=== PATIENT | female | born 1940 | race Caucasian/White ===

== ENCOUNTER 2019-05-21 00:31 | Observation (INO) | payer MEDICARE, BC ==
--- NOTE | 2019-05-21 00:39 | EDM.PDOC ---
ED HPI GENERAL MEDICAL PROBLEM - General Stated Complaint: AMBULANCE Time Seen by Provider: 05/21/19 00:34 Source of Information: Reports: Patient, EMS, Family History Limitations: Reports: No Limitations - History of Present Illness INITIAL COMMENTS - FREE TEXT/NARRATIVE: pt states started vertigo wile getting into bed. spouse states pt getting some dementia and sometimes forgets her Rx. EMS arrived @ scene of pt in bed c/o vertigo. - Related Data Allergies Allergy/AdvReac Type Severity Reaction Status Date / Time atorvastatin [From Lipitor] Allergy Cannot Verified 05/21/19 01:12 Remember diazepam [From Valium] Allergy Cannot Verified 05/21/19 01:12 Remember ibuprofen Allergy Cannot Verified 05/21/19 01:12 Remember latex Allergy Cannot Verified 05/21/19 01:12 Remember meperidine [From Demerol] Allergy Cannot Verified 05/21/19 01:12 Remember propoxyphene [From Darvon] Allergy Cannot Verified 05/21/19 01:12 Remember shrimp Allergy Cannot Verified 05/21/19 01:12 Remember Sulfa (Sulfonamide Allergy Cannot Verified 05/21/19 01:12 Antibiotics) Remember tetracycline Allergy Cannot Verified 05/21/19 01:12 Remember Home Meds: Home Meds Aspirin 81 mg PO DAILY 05/21/19 [History] DULoxetine HCl [Duloxetine HCl] 60 mg PO DAILY 05/21/19 [History] Donepezil HCl [Aricept] 10 mg PO DAILY 05/21/19 [History] Erythromycin Base [Erythromycin 0.5% Ophth Oint] 1 drop TOP DAILY 05/21/19 [ History] Hydrocodone/Acetaminophen [[place] 5-325 Tablet] 1 tab PO ASDIRECTED PRN 05/21/19 [History] Loteprednol Etabonate 1 drop TOP BID 05/21/19 [History] Memantine HCl [Namenda] 10 mg PO BID 05/21/19 [History] Metoprolol Tartrate 100 mg PO BID 05/21/19 [History] Simvastatin 40 mg PO DAILY 05/21/19 [History] fentaNYL [Duragesic] 1 patch TOP Q72H PRN 05/21/19 [History] valACYclovir HCl [valACYclovir] 1 gm PO BID 05/21/19 [History] ED ROS GENERAL - Review of Systems Review Of Systems: Comprehensive ROS is negative, except as noted in HPI. ED EXAM, DIZZINESS - Physical Exam Exam: See Below Exam Limited By: No Limitations General Appearance: Alert, WD/WN, Mild Distress, Other (discomfort) Ears: Hearing Grossly Normal Throat/Mouth: Normal Voice, No Airway Compromise Head Exam: Atraumatic Neck: Non-Tender, Full Range of Motion Respiratory/Chest: No Respiratory Distress Cardiovascular: Regular Rate, Rhythm GI/Abdominal: Soft, Non-Tender Neurological: Alert, Oriented x 3 Psychiatric: Flat Affect Skin Exam: Warm, Dry, Normal Color Course - Vital Signs Last Recorded V/S: Last Vital Signs Temp 35.8 C 05/21/19 00:34 Pulse 65 05/21/19 00:34 Resp 15 05/21/19 00:34 BP 213/58 H 05/21/19 02:02 Pulse Ox 92 L 05/21/19 00:34 - Orders/Labs/Meds Orders: Active Orders 24 hr Category Date Time Status EKG 12 Lead [EKG Documentation Completion] [RC] STAT Care 05/21/19 00:32 Active Labs: Laboratory Tests 05/21/19 05/21/19 05/21/19 Range/Units 00:34 00:35 00:35 WBC 7.7 (5.0-10.0) 10^3/uL RBC 4.10 L (4.2-5.4) 10^6/uL Hgb 13.1 (12.0-16.0) g/dL Hct 40.4 (37.0-47.0) % MCV 98.5 (80-100) fL MCH 32.0 (27.0-34.0) pg MCHC 32.4 L (33.0-35.0) g/dL Plt Count 220 (150-450) 10^3/uL Neut % (Auto) 34.4 L (42.2-75.2) % Lymph % (Auto) 47.9 (20.5-50.1) % [place] % (Auto) 11.7 H (2-8) % Eos % (Auto) 5.5 H (1.0-3.0) % Baso % (Auto) 0.5 (0.0-1.0) % Sodium 139 (135-145) mmol/L Potassium 3.8 (3.6-5.0) mmol/L Chloride 104 (101-111) mmol/L Carbon Dioxide 26.0 (21.0-31.0) mmol/L Anion Gap 12.8 BUN 14 (7-18) mg/dL Creatinine 0.8 (0.6-1.3) mg/dL Est Cr Clr Drug Dosing 55.45 mL/min Estimated GFR (MDRD) > 60 BUN/Creatinine Ratio 17.50 Glucose 133 H (74-105) mg/dL POC Glucose 134 H (83-110) mg/dl Lactic Acid (0.5-2.2) mmol/L Calcium 8.8 (8.4-10.2) mg/dl Total Bilirubin 0.5 (0.2-1.0) mg/dL AST 17 (10-42) IU/L ALT 13 (10-60) IU/L Alkaline Phosphatase 66 (42-121) IU/L Troponin I < 0.02 (0.00-0.02) ng/ml Total Protein 6.9 (6.7-8.2) g/dl Albumin 4.2 (3.2-5.5) g/dl Globulin 2.7 Albumin/Globulin Ratio 1.56 05/21/19 Range/Units 00:35 WBC (5.0-10.0) 10^3/uL RBC (4.2-5.4) 10^6/uL Hgb (12.0-16.0) g/dL Hct (37.0-47.0) % MCV (80-100) fL MCH (27.0-34.0) pg MCHC (33.0-35.0) g/dL Plt Count (150-450) 10^3/uL Neut % (Auto) (42.2-75.2) % Lymph % (Auto) (20.5-50.1) % [place] % (Auto) (2-8) % Eos % (Auto) (1.0-3.0) % Baso % (Auto) (0.0-1.0) % Sodium (135-145) mmol/L Potassium (3.6-5.0) mmol/L Chloride (101-111) mmol/L Carbon Dioxide (21.0-31.0) mmol/L Anion Gap BUN (7-18) mg/dL Creatinine (0.6-1.3) mg/dL Est Cr Clr Drug Dosing mL/min Estimated GFR (MDRD) BUN/Creatinine Ratio Glucose (74-105) mg/dL POC Glucose (83-110) mg/dl Lactic Acid 1.1 (0.5-2.2) mmol/L Calcium (8.4-10.2) mg/dl Total Bilirubin (0.2-1.0) mg/dL AST (10-42) IU/L ALT (10-60) IU/L Alkaline Phosphatase (42-121) IU/L Troponin I (0.00-0.02) ng/ml Total Protein (6.7-8.2) g/dl Albumin (3.2-5.5) g/dl Globulin Albumin/Globulin Ratio Meds: Medications Discontinued Medications Generic Name Dose Route Start Last Admin Trade Name Freq PRN Reason Stop Dose Admin Clonidine HCl 0.1 mg 05/21/19 00:50 05/21/19 01:11 Catapres PO 05/21/19 00:51 0.1 mg ONETIME ONE Administration Clonidine HCl 0.1 mg 05/21/19 01:57 05/21/19 02:02 Catapres PO 05/21/19 01:58 0.1 mg ONETIME ONE Administration Meclizine HCl 12.5 mg 05/21/19 00:48 05/21/19 01:11 Antivert PO 05/21/19 00:49 12.5 mg ONETIME ONE Administration Ondansetron HCl 4 mg 05/21/19 00:48 05/21/19 01:11 Zofran IV 05/21/19 00:49 4 mg ONETIME ONE Administration - Re-Assessments/Exams Free Text/Narrative Re-Assessment/Exam: 05/21/19 02:[address] Zuly engel; uncontrolled HTN, who kindly admitted pt to observation. Departure - Departure Time of Disposition: 02:38 Disposition: Refer to Observation Condition: Good Clinical Impression: Hypertension Qualifiers: Hypertension type: unspecified Qualified Code(s): I10 - Essential (primary) hypertension - Discharge Information Forms: ED Department Discharge Sepsis Event Note - Focused Exam Vital Signs: Vital Signs Temp Pulse Resp BP BP Pulse Ox 05/21/19 02:02 213/58 H 05/21/19 01:11 243/101 H 05/21/19 00:34 35.8 C 65 15 196/68 H 92 L Date Exam was Performed: 05/21/19 Time Exam was Performed: 02:37 - My Orders Last 24 Hours: My Active Orders 05/21/19 00:32 EKG 12 Lead [EKG Documentation Completion] [RC] STAT - Assessment/Plan Last 24 Hours: My Active Orders 05/21/19 00:32 EKG 12 Lead [EKG Documentation Completion] [RC] STAT
[2019-05-21] MEDS ORDERED: Meclizine 12.5 MG Tab PO ONE (00:48)
[2019-05-21] MEDS ORDERED: Ondansetron 4 MG/2 ML SDV IV ONE (00:48)
[2019-05-21] MEDS ORDERED: cloNIDine 0.1 MG Tab PO ONE ×2 (00:50→01:57)
[2019-05-21 00:59] LABS: ANION GAP 12.8; CHLORIDE,CL 104 mmol/L (101-111); SODIUM,NA 139 mmol/L (135-145)
[2019-05-21] MEDS ORDERED: ALPRAZolam 0.5 MG Tab PO ONE (03:38)
[2019-05-21] MEDS ORDERED: Ondansetron 4 MG Tab.DIS PO PRN (04:30)
[2019-05-21] MEDS ORDERED: Magnesium Hydroxide 400 MG/5 ML Susp 30 ML Cup PO PRN (04:30)
[2019-05-21] MEDS ORDERED: Docusate Sodium 100 MG Cap PO PRN (04:30)
[2019-05-21] MEDS ORDERED: Acetaminophen 325 MG Tab PO PRN (04:30)
[2019-05-21] MEDS ORDERED: Acetaminophen/HYDROcodone 325-5 MG Tab PO PRN ×2 (04:36→05:41)
[2019-05-21] MEDS ORDERED: cloNIDine 0.1 MG Tab PO PRN (04:45)
[2019-05-21] MEDS ORDERED: hydrALAZINE 20 MG/ML SDV IVPUSH PRN (04:46)
[2019-05-21] MEDS ORDERED: ALPRAZolam 0.5 MG Tab PO PRN (04:48)
[2019-05-21] MEDS ORDERED: Metoprolol Tartrate 50 MG Tab PO SCH (09:00)
[2019-05-21] MEDS ORDERED: Memantine 10 MG Tab PO SCH (09:00)
[2019-05-21] MEDS ORDERED: DULoxetine 30 MG Cap PO SCH (09:00)
--- NOTE | 2019-05-21 09:02 | HP ---
CHIEF COMPLAINT: Nausea and dizziness. HISTORY OF PRESENTING ILLNESS: Ms. Elen Montez is a 78-year-old female with medical history significant for hypertension, hyperlipidemia, type 2 diabetes mellitus, obesity, history of dementia, anxiety, depression, history of TIA in the past, presented to the ER with complaints of having nausea and dizziness and noted to have hypertensive urgency with elevated blood pressure. On initial presentation, the patient had a blood pressure of 243/101. The patient was given some clonidine in the ER and continued to have elevated blood pressure, up to 201/70, requiring admission to the hospital. At this time, the patient denies any complaints of chest pain. No shortness of breath. No abdominal pain. The patient denies any headache. No changes in vision. No complaints of weakness or tingling to the extremities. She denies any history of similar complaints in the past. She usually checks her blood pressure at home and usually her blood pressure is in the range of 120 to 130 systolic. She has been compliant with her medications. She has been taking her medications every day. She claims that whenever she gets upset, she tends to have higher blood pressure, and she was upset for some reason. She does not remember quite well. The patient denied any history of chest pains on exertion. No history of dyspnea on exertion. No history of orthopnea or paroxysmal nocturnal dyspnea. The patient denied any history of hematemesis, hematochezia, or melenic stools. Normal bowel and bladder habits otherwise. REVIEW OF SYSTEMS: A complete review of system including skin, ear, nose, and throat, cardiovascular system, respiratory system, gastrointestinal system, genitourinary system, hematology, oncology, neurology, allergy, immunology, constitutional were all evaluated and were negative except for the above-said notes. PAST MEDICAL HISTORY: Significant for hypertension, hyperlipidemia, type 2 diabetes mellitus, obesity, history of anxiety and depression, Sjogren syndrome, history of TIAs in the past, degenerative disk disease, and alzheimer disease. PAST SURGICAL HISTORY: Significant for tonsillectomy, shoulder rotator cuff repair, septoplasty, knee arthroscopy, cataract extraction with implant, history of breast biopsy, and back surgery. FAMILY HISTORY: Significant for heart disease and thyroid disease in her mother, heart disease in her father. Parkinson's, breast cancer, and thyroid disease in her sister. ALLERGIES: The patient noted to have allergies to Lipitor, diazepam, ibuprofen, latex, meperidine, propoxyphene, shrimp, sulfa, and tetracycline. HOME MEDICATIONS: Include Tylenol 650 every 4 hours as needed, aspirin 81 mg daily, docusate sodium 100 mg twice a day as needed, Cymbalta 60 mg daily, Aricept 10 mg at bedtime, fentanyl patch q.72 hours, simvastatin 40 mg at bedtime, erythromycin base ophthalmic at bedtime, [place] 5/325 mg as needed for pain, Namenda 10 mg twice a day, metoprolol 100 mg twice a day, valacyclovir 1 g oral twice a day. PHYSICAL EXAMINATION: Vital Signs: Temperature of 97.8, pulse of 64, blood pressure of 201/70, respiratory rate of 20, saturating at 97%. General Appearance: The patient is well oriented to time, place, and person. Follows commands spontaneously. Cardiovascular System: S1 and S2 heard with normal intensity. No gallops. Respiratory System: Clear to auscultation bilaterally. No wheeze. No crepitations. Abdomen: Soft. Bowel sounds positive. Nontender. No rigidity. Extremities: No edema in bilateral lower extremities. Neurologic: No gross focal neurological deficits. LABORATORY DATA: 1. WBC 7.7, hemoglobin 13.1, hematocrit 40.4, platelet count 220. 2. Sodium 139, potassium 3.8, chloride 104, bicarb 26, BUN 14, creatinine 0.8, glucose 133. AST 17, ALT 13. Troponin less than 0.02. ASSESSMENT: 1. Hypertensive urgency. 2. History of anxiety and depression. 3. Type 2 diabetes mellitus. 4. Hyperlipidemia. 5. Sjogren syndrome. 6. History of transient ischemic attacks in the past. 7. Obesity. 8. Alzheimer's dementia. PLAN: 1. Hypertensive urgency. The patient noted to have elevated blood pressure. Exact etiology not clear. The patient claims that she has been compliant with her medications. CT scan of the head was within normal limits. A 12- lead EKG does not show any acute ST elevation or ST depression. Normal sinus rhythm on the 12-lead EKG. The patient will be admitted to the hospital. We will have her on telemetry unit. We will start her back on her home regimen. We will use clonidine as needed. Use IV hydralazine as needed for systolic blood pressure greater than 180, and we will further titrate the medication to optimize the blood pressure if needed. Closely follow. The patient would benefit from getting an echocardiogram as an outpatient as we do not have the echocardiogram available at this time. 2. Type 2 diabetes mellitus. The patient is not on any active medications for diabetes. Her blood sugar was 133. We will check her fingersticks 4 times a day. Use correction dose insulin as needed. 3. DVT prophylaxis. We will have her on Lovenox for DVT prophylaxis. 4. Alzheimer disease. Continue with Namenda. 5. History of anxiety and depression. She has been on Cymbalta. We will continue the same. Use Xanax as needed for anxiety while in the hospital. 6. Chronic opioid use and continued use. The patient has chronic pain syndrome and has been on fentanyl patch and [place] as needed. 7. Advanced care plan. The patient wants to be full code at this time. Discussed with Dr. Sanchez, ER staff, regarding the plan of care. Discussed with the patient regarding the plan of care. Reviewed the labs and medications. Reviewed the old charts. [facility] /[id number]
[2019-05-21] MEDS: Aspirin 81 MG Tab.Chew PO SCH (09:08)
[2019-05-21] MEDS: Lisinopril 5 MG Tab PO SCH (09:08)
[2019-05-21] MEDS: CHECK FENTANYL 12 MCG SCH ×2 (09:09→21:15)
[2019-05-21] MEDS ORDERED: Donepezil 10 MG Tab **OWN MED PO SCH ×2 (21:00)
[2019-05-21] MEDS ORDERED: Memantine 10 MG Tab **OWN MED PO SCH (21:00)
[2019-05-21] MEDS ORDERED: Simvastatin 40 MG Tab **OWN MED PO SCH ×2 (21:00)
[2019-05-21] MEDS ORDERED: Erythromycin Base 0.5% Ophth Oint 3.5 GM Tube EYERT SCH ×2 (21:00)
[2019-05-21] MEDS: Memantine 10 MG Tab **OWN MED PO SCH (21:14)
[2019-05-21] MEDS: METOPROLOL TARTRATE 100 MG PO SCH (21:15)
[2019-05-22 06:42] LABS: ANION GAP 11.2; CHLORIDE,CL 106 mmol/L (101-111); SODIUM,NA 138 mmol/L (135-145)
[2019-05-22] MEDS ORDERED: DULOXETINE 60 MG PO SCH (09:00)
[2019-05-22] MEDS ORDERED: Enoxaparin 40 MG/0.4 ML Syringe SUBCUT SCH (09:00)
[2019-05-22] MEDS: Lisinopril 5 MG Tab PO SCH (09:31)
[2019-05-22] MEDS: METOPROLOL TARTRATE 100 MG PO SCH (09:32)
[2019-05-22] MEDS: Memantine 10 MG Tab **OWN MED PO SCH (09:32)
[2019-05-22] MEDS: Aspirin 81 MG Tab.Chew PO SCH (09:34)
[2019-05-22] MEDS: CHECK FENTANYL 12 MCG SCH (09:40)
--- NOTE | 2019-05-22 14:15 | DISCH ---
ADMITTING DIAGNOSIS: Hypertensive urgency. DISCHARGE DIAGNOSES: 1. Hypertensive urgency, improved after adding lisinopril 5 mg daily. 2. History of anxiety and depression. 3. Type 2 diabetes mellitus. 4. Alzheimer dementia. HISTORY OF PRESENTING ILLNESS: Ms. Elen Montez is a 78-year-old female with a medical history significant for hypertension, hyperlipidemia, type 2 diabetes mellitus, obesity, history of dementia, anxiety, and depression; presented to the ER with complaints of having nausea and dizziness and noted to have hypertensive urgency where she was noted to have blood pressure of 243/101. The patient was admitted to the hospital as multiple doses of clonidine did not improve her blood pressure while in the ER. After getting admitted to the hospital, she was closely monitored on the telemetry unit. We did serial cardiac enzymes, which remained negative. She denies any ongoing chest pains or shortness of breath. We added lisinopril 5 mg daily, after which her blood pressures improved. Her blood pressure came down to 139/69 at the time of discharge. The patient also claims that her fentanyl patch was recently started, unsure this is resulting in her dizziness symptoms too. The patient was explained about side effect profile of opiate pain medications, and I encouraged the patient to hold the fentanyl patch if she has more nausea, vomiting, or dizziness spells. The patient had a CT scan of the head done at the time of admission, which was within normal limits. The patient and family members were explained about changes in her medication, about the addition of lisinopril for better control of the blood pressure. They are advised to follow with her primary care physician in next 1 week of time. She is discharged home in stable condition. DISCHARGE MEDICATIONS: Include aspirin 81 mg daily, carboxymethylcellulose 1 drop to both eyes as needed for dry eyes, duloxetine 60 mg daily, Aricept 10 mg at bedtime, erythromycin base topical at bedtime, Ganciclovir Eye left twice daily, [place] 5/325 mg every 4 hours as needed for pain, lisinopril 5 mg daily, loteprednol 1 drop topical twice daily, Namenda 10 mg twice a day, metoprolol 100 mg twice a day, simvastatin 40 mg at bedtime, fentanyl patch 12 mcg every 72 hours, and valacyclovir 1 g oral twice daily. PHYSICAL EXAMINATION: On the day of discharge: Vital Signs: Temperature of 98.3, pulse of 60, blood pressure of 139/69, respiratory rate of 18, and saturating at 97%. General Appearance: The patient is well oriented to time, place, and person. Follows commands spontaneously. Cardiovascular System: S1, S2 heard with normal intensity. No gallops. Respiratory System: Clear to auscultation bilaterally. No wheeze. No crepitations. Abdomen: Soft. Bowel sounds positive. Nontender. No rigidity. Extremities: No edema of bilateral lower extremities. NEUROLOGIC: No gross focal neurological deficit. CONDITION ON ADMISSION: Poor. CONDITION ON DISCHARGE: Stable. DISPOSITION: Discharged to home. ACTIVITY: As tolerated. DIET: Cardiac healthy diet. FOLLOWUP: Follow with primary care physician within 1 week of time. [facility] /[id number]
[2019-05-22] MEDS ORDERED: VALACYCLOVIR 1 GM PO SCH (21:00)
[2019-05-24] MEDS ORDERED: fentaNYL 12 MCG/HR Transdermal Patch TOP PRN (05:00)
== END 2019-05-22 13:10 | disposition home or self-care (01) ==
LOC: DL.ED 00:31 → DL.MS 02:57 → UNDOADMOB 02:57 → DL.MS 03:02
PROVIDERS: ADMIT Internal Medicine; ATTEND Internal Medicine
DX: I16.0 Hypertensive urgency (principal); I10 Essential (primary) hypertension; E11.9 Type 2 diabetes mellitus without complications; E78.5 Hyperlipidemia, unspecified; E66.9 Obesity, unspecified; F41.9 Anxiety disorder, unspecified; F32.9 Major depressive disorder, single episode, unspecified; F02.80 Dementia in other diseases classified elsewhere, unspecified severity, without behavioral disturbance, psychotic disturbance, mood disturbance, and anxiety; G30.9 Alzheimer's disease, unspecified; M35.00 Sjogren syndrome, unspecified; Z88.6 Allergy status to analgesic agent; Z88.5 Allergy status to narcotic agent; Z88.2 Allergy status to sulfonamides; Z88.1 Allergy status to other antibiotic agents; Z88.8 Allergy status to other drugs, medicaments and biological substances; Z91.040 Latex allergy status; Z79.82 Long term (current) use of aspirin; Z79.899 Other long term (current) drug therapy; Z68.32 Body mass index [BMI] 32.0-32.9, adult
CPT/HCPCS: 36415; 70450; 71045; 80048; 80053; 81001; 82962; 83605; 84484; 85025; 93005; 96374; 99285; A9270; J1650; J2405; 96372; G0378

== ENCOUNTER 2020-01-11 14:46 | Observation (INO) | payer MEDICARE, BC ==
--- NOTE | 2020-01-11 14:47 | EDM.PDOCBH ---
ED HPI GENERAL MEDICAL PROBLEM - General Chief Complaint: Behavioral/Psych Stated Complaint: IN BY AMBULANCE Time Seen by Provider: 01/11/20 14:47 Source of Information: Reports: Patient, EMS, Old Records, Police, RN, RN Notes Reviewed History Limitations: Reports: Other (Dementia, confusion) - History of Present Illness INITIAL COMMENTS - FREE TEXT/NARRATIVE: Pt arrives to ER by police after refusing to cooperate with the ambulance crew. Pt's family called Lola Zhang NP at [facility] with concerns for the pt's safety due to worsening dementia. Recently the pt has become physically combative with her and son. The ambulance crew found pt to be combative as well, and report that they gave Ativan 2mg IM + Benadryl & Haldol IM (unknown mg). Pt arrives with [employer] Officer Vadim shaking and upset, but cooperative. Pt denies any pain, concerns of illness, or injury. 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 Pt states she has had stress and pressure placed on her by her family and that has caused her to react with anger, but that does not mean that she is crazy. Pt's son sent the chief of police with a copy of a DPA for the pt. Onset: Unknown/Unsure Duration: Chronic, Getting Worse Location: Reports: Generalized Improves with: Reports: None Worsens with: Reports: None Associated Symptoms: Reports: No Other Symptoms - Related Data Allergies Allergy/AdvReac Type Severity Reaction Status Date / Time atorvastatin [From Lipitor] Allergy Cannot Verified 05/21/19 01:12 Remember diazepam [From Valium] Allergy Cannot Verified 05/21/19 01:12 Remember ibuprofen Allergy Cannot Verified 05/21/19 01:12 Remember latex Allergy Cannot Verified 05/21/19 01:12 Remember meperidine [From Demerol] Allergy Cannot Verified 05/21/19 01:12 Remember propoxyphene [From Darvon] Allergy Cannot Verified 05/21/19 01:12 Remember shrimp Allergy Cannot Verified 05/21/19 01:12 Remember Sulfa (Sulfonamide Allergy Cannot Verified 05/21/19 01:12 Antibiotics) Remember tetracycline Allergy Cannot Verified 05/21/19 01:12 Remember Home Meds: Home Meds Aspirin 81 mg PO DAILY 05/21/19 [History] DULoxetine HCl [Duloxetine HCl] 60 mg PO DAILY 05/21/19 [History] Donepezil HCl [Aricept] 10 mg PO BEDTIME 05/21/19 [History] Erythromycin Base [Erythromycin 0.5% Ophth Oint] 1 applic TOP BEDTIME 05/21/19 [History] Hydrocodone/Acetaminophen [[place] 5-325 Tablet] 1 tab PO Q4HR PRN 05/21/19 [History] Loteprednol Etabonate 1 drop TOP BID 05/21/19 [History] Memantine HCl [Namenda] 10 mg PO BID 05/21/19 [History] Metoprolol Tartrate 100 mg PO BID 05/21/19 [History] Simvastatin 40 mg PO BEDTIME 05/21/19 [History] valACYclovir HCl [valACYclovir] 1 gm PO BID 05/21/19 [History] lisinopriL [Prinivil] 5 mg PO DAILY 30 Days #30 tablet 05/22/19 [Rx] Past Medical History Cardiovascular History: Reports: Hypertension Musculoskeletal History: Reports: Arthritis Neurological History: Reports: TIA Psychiatric History: Reports: Anxiety, Dementia Social & Family History - Family History Family Medical History: Unobtainable - Caffeine Use Caffeine Use: Reports: Coffee - Living Situation & Occupation Living situation: Reports: , with Spouse Occupation: Retired ED ROS GENERAL - Review of Systems Review Of Systems: Comprehensive ROS is negative, except as noted in HPI. ED EXAM, BEHAVIORAL HEALTH - Physical Exam Exam: See Below Exam Limited By: No Limitations General Appearance: Alert, WD/WN, No Apparent Distress, Anxious Eye Exam: Bilateral Eye: Normal Inspection Ears: Normal External Exam, Hearing Grossly Normal Nose: Normal Inspection Throat/Mouth: Normal Inspection, Normal Voice, No Airway Compromise Head: Atraumatic, Normocephalic Neck: Normal Inspection Respiratory/Chest: No Respiratory Distress, Lungs Clear, Normal Breath Sounds, No Accessory Muscle Use, Chest Non-Tender Cardiovascular: Regular Rate, Rhythm GI/Abdominal: Normal Bowel Sounds, Soft, Non-Tender Back Exam: Normal Inspection Extremities: Normal Inspection, Normal Range of Motion, Non-Tender, Normal Capillary Refill, No Pedal Edema Neurological: Alert, CN II-XII Intact, Normal Gait, No Motor/Sensory Deficits, Oriented x 3 (pt correctly states her name, current location as [place], [place] in the hospital ER, and states the correct month, date, and year.), Memory Loss Recent Events Psychiatric: Normal Affect, Normal Mood, Other (Anxious) Skin Exam: Warm, Dry, Intact, Normal color, No rash COURSE, BEHAVIORAL HEALTH COMP - Course Vital Signs: Last Vital Signs Temp 98.1 F 01/11/20 16:43 Pulse 88 01/11/20 16:43 Resp 18 01/11/20 16:43 BP 142/60 H 01/11/20 16:43 Pulse Ox 99 01/11/20 16:43 Orders, Labs, Meds: Active Orders 24 hr Category Date Time Status Consult to Behavioral Health [Behavioral Health Cons 01/11/20 14:53 Active Evaluation] [CONS] Routine Laboratory Tests 01/11/20 01/11/20 01/11/20 Range/Units 15:06 15:06 15:06 WBC 5.7 (5.0-10.0) 10^3/uL RBC 4.01 L (4.2-5.4) 10^6/uL Hgb 13.4 (12.0-16.0) g/dL Hct 41.6 (37.0-47.0) % MCV 103.7 H D (80-100) fL MCH 33.4 (27.0-34.0) pg MCHC 32.2 L (33.0-35.0) g/dL Plt Count 222 (150-450) 10^3/uL Neut % (Auto) 72.7 (42.2-75.2) % Lymph % (Auto) 20.6 (20.5-50.1) % [place] % (Auto) 5.9 (2-8) % Eos % (Auto) 0.5 L (1.0-3.0) % Baso % (Auto) 0.3 (0.0-1.0) % Sodium 141 (136-145) mmol/L Potassium 3.5 (3.5-5.1) mmol/L Chloride 103 (98-107) mmol/L Carbon Dioxide 27 (21-32) mmol/L Anion Gap 14.5 H (7-13) mEq/L BUN 9 (7-18) mg/dL Creatinine 1.09 H (0.55-1.02) mg/dL Est Cr Clr Drug Dosing 40.03 mL/min Estimated GFR (MDRD) 48 BUN/Creatinine Ratio 8.3 (No establ ref range) Glucose 202 H (74-99) mg/dL Calcium 8.7 (8.5-10.1) mg/dL Magnesium 1.8 (1.8-2.4) mg/dL Total Bilirubin 0.5 (0.2-1.0) mg/dL AST 17 (15-37) U/L ALT 20 (14-59) U/L Alkaline Phosphatase 73 (46-116) U/L Total Protein 7.1 (6.4-8.2) g/dL Albumin 3.8 (3.4-5.0) g/dL Globulin 3.3 Albumin/Globulin Ratio 1.2 TSH, Ultra Sensitive 0.79 (0.36-3.74) uIU/mL Urine Color (YELLOW) Urine Appearance (CLEAR) Urine pH (5.0-9.0) Ur Specific [place] (1.005-1.030) Urine Protein (NEGATIVE) Urine Glucose (UA) (NEGATIVE) Urine Ketones (NEGATIVE) Urine Occult Blood (NEGATIVE) Urine Nitrite (NEGATIVE) Urine Bilirubin (NEGATIVE) Urine Urobilinogen (0.2-1.0) mg/dL Ur Leukocyte Esterase (NEGATIVE) Urine RBC /HPF Urine WBC (0-5/HPF) /HPF Ur Epithelial Cells (NOT SEEN) /HPF Urine Bacteria (0-FEW/HPF) /HPF Urinalysis Comment Salicylates < 2.8 L (2.8-20(Therapeutic)) mg/dL Urine Opiates Screen (NEGATIVE) Ur Oxycodone Screen (NEGATIVE) Urine Methadone Screen (NEGATIVE) Acetaminophen 2 L (10-30 (Therapeutic)) ug/mL Ur Barbiturates Screen (NEGATIVE) U Tricyclic Antidepress (NEGATIVE) Ur Phencyclidine Scrn (NEGATIVE) Ur Amphetamine Screen (NEGATIVE) U Methamphetamines Scrn (NEGATIVE) Urine MDMA Screen (NEGATIVE) U Benzodiazepines Scrn (NEGATIVE) Urine Cocaine Screen (NEGATIVE) U Marijuana (THC) Screen (NEGATIVE) Ethyl Alcohol < 3 (0) mg/dL 01/11/20 01/11/20 Range/Units 15:50 15:50 WBC (5.0-10.0) 10^3/uL RBC (4.2-5.4) 10^6/uL Hgb (12.0-16.0) g/dL Hct (37.0-47.0) % MCV (80-100) fL MCH (27.0-34.0) pg MCHC (33.0-35.0) g/dL Plt Count (150-450) 10^3/uL Neut % (Auto) (42.2-75.2) % Lymph % (Auto) (20.5-50.1) % [place] % (Auto) (2-8) % Eos % (Auto) (1.0-3.0) % Baso % (Auto) (0.0-1.0) % Sodium (136-145) mmol/L Potassium (3.5-5.1) mmol/L Chloride (98-107) mmol/L Carbon Dioxide (21-32) mmol/L Anion Gap (7-13) mEq/L BUN (7-18) mg/dL Creatinine (0.55-1.02) mg/dL Est Cr Clr Drug Dosing mL/min Estimated GFR (MDRD) BUN/Creatinine Ratio (No establ ref range) Glucose (74-99) mg/dL Calcium (8.5-10.1) mg/dL Magnesium (1.8-2.4) mg/dL Total Bilirubin (0.2-1.0) mg/dL AST (15-37) U/L ALT (14-59) U/L Alkaline Phosphatase (46-116) U/L Total Protein (6.4-8.2) g/dL Albumin (3.4-5.0) g/dL Globulin Albumin/Globulin Ratio TSH, Ultra Sensitive (0.36-3.74) uIU/mL Urine Color Yellow (YELLOW) Urine Appearance Clear (CLEAR) Urine pH 6.0 (5.0-9.0) Ur Specific [place] 1.025 (1.005-1.030) Urine Protein 30 H (NEGATIVE) Urine Glucose (UA) Negative (NEGATIVE) Urine Ketones Negative (NEGATIVE) Urine Occult Blood Negative (NEGATIVE) Urine Nitrite Negative (NEGATIVE) Urine Bilirubin Negative (NEGATIVE) Urine Urobilinogen 0.2 (0.2-1.0) mg/dL Ur Leukocyte Esterase Negative (NEGATIVE) Urine RBC 0-5 /HPF Urine WBC 0-5 (0-5/HPF) /HPF Ur Epithelial Cells Rare (NOT SEEN) /HPF Urine Bacteria Rare (0-FEW/HPF) /HPF Urinalysis Comment See note Salicylates (2.8-20(Therapeutic)) mg/dL Urine Opiates Screen Positive H (NEGATIVE) Ur Oxycodone Screen Positive H (NEGATIVE) Urine Methadone Screen Negative (NEGATIVE) Acetaminophen (10-30 (Therapeutic)) ug/mL Ur Barbiturates Screen Negative (NEGATIVE) U Tricyclic Antidepress Negative (NEGATIVE) Ur Phencyclidine Scrn Negative (NEGATIVE) Ur Amphetamine Screen Negative (NEGATIVE) U Methamphetamines Scrn Negative (NEGATIVE) Urine MDMA Screen Negative (NEGATIVE) U Benzodiazepines Scrn Positive H (NEGATIVE) Urine Cocaine Screen Negative (NEGATIVE) U Marijuana (THC) Screen Negative (NEGATIVE) Ethyl Alcohol (0) mg/dL Medical Clearance: 01/11/20 17:06 Pt is medically clear. [facility] Cal[facility] will consult Nathalie from adult protective services to see what if anything can be done for the pt. Pt does not meet criteria for detainment as she is not a grave danger to herself or others. She likely would benefit from placement to a memory care unit, but this is a social matter for her half-way care and safety plan. Discharge vs Psych Eval/Treatment:: 01/11/20 17:46 Karma Kimberrocky from [facility] has no options or criteria to detain the pt or admit the pt to [facility]. The [place] [employer] person did not respond or call back to the pt's family's call(s) from earlier today, and Karma Calero was also unable to make contact with [facility]. I explained to the pt's [id number] (Estrella) that the pt does not have any findings to warrant admission to a medical bed in the hospital (no admission criteria). Estrella was not pleased with the limitations of the emergency department to find immediate placement for the pt. I explained that we do not have emergency placement for dementia that has advanced to the point of behavioral problems at home. Unfortunately the family had made no prior arrangements earlier in the pt's dementia diagnosis. I advised that the family will need to ensure the pt's safety and f/u in clinic with the PCP tomorrow for a referral to placement to a dementia unit or other acceptable facility. Departure - Departure Time of Disposition: 17:57 Disposition: Home, Self-Care 01 Condition: Fair Clinical Impression: Dementia, Alzheimer's, with behavior disturbance Qualifiers: Alzheimer's disease onset: unspecified onset Qualified Code(s): G30.9 - Alzheimer's disease, unspecified; F02.81 - Dementia in other diseases classified elsewhere with behavioral disturbance - Discharge Information *PRESCRIPTION DRUG MONITORING PROGRAM REVIEWED*: No *COPY OF PRESCRIPTION DRUG MONITORING REPORT IN PATIENT WIN: No Instructions: Alzheimer Disease Caregiver Guide Forms: ED Department Discharge Additional Instructions: Follow up tomorrow with your primary care provider for a admission referral to a dementia unit or other acceptable safe living facility. Resource Numbers: [facility] Adult Protective Services: [phone], press option #2 [facility] [employer] 24 Hour Line: [phone] Sepsis Event Note (ED) - Focused Exam Vital Signs: Vital Signs Temp Pulse Resp BP Pulse Ox 01/11/20 16:43 98.1 F 88 18 142/60 H 99 01/11/20 15:10 98.1 F 80 18 125/60 99 - My Orders Last 24 Hours: My Active Orders 01/11/20 14:53 Consult to Behavioral Health [Behavioral Health Evaluation] [CONS] Routine - Assessment/Plan Last 24 Hours: My Active Orders 01/11/20 14:53 Consult to Behavioral Health [Behavioral Health Evaluation] [CONS] Routine
[2020-01-11 15:44] LABS: ACETAMINOPHEN 2 ug/mL (10-30 (Therapeutic)); ANION GAP 14.5 mEq/L (7-13); CHLORIDE,CL 103 mmol/L (98-107); SODIUM,NA 141 mmol/L (136-145)
[2020-01-11] MEDS ORDERED: Acetaminophen 325 MG Tab PO PRN (19:22)
[2020-01-11] MEDS ORDERED: Ondansetron 4 MG Tab.DIS PO PRN (19:22)
[2020-01-11] MEDS ORDERED: Ondansetron 4 MG/2 ML SDV IVPUSH PRN (19:22)
[2020-01-11] MEDS ORDERED: Acetaminophen/HYDROcodone 325-5 MG Tab PO PRN (19:33)
--- NOTE | 2020-01-11 19:33 | PCM.HP ---
H&P History of Present Illness - General Date of Service: 01/11/20 Admit Problem/Dx: Admission Diagnosis/Problem Admission Diagnosis/Problem Altered mental status Source of Information: Patient, Old Records, Provider History Limitations: Reports: No Limitations - History of Present Illness Initial Comments - Free Text/Narative: Patient is is an 79-year-old female with medical history significant for hypertension, dyslipidemia, type 2 diabetes, GERD, dementia, anxiety and depression, and Sjogren's syndrome who was brought to the ED by police after refusing to cooperate with ambulance crew. Patient reports that there was some issues in her family and she became upset. Reports that she is doing okay. Denies chest pain, shortness of breath, fevers, chills, nausea, vomiting, diarrhea, constipation, dysuria, hematuria, visual and auditory hallucinations, homicidal, or suicidal ideations. ED documentation, patient was brought by the police department because patient did not complete with a blood screw. Family had called the patient's PCP to express concerns about patient's safety due to mild worsening dementia. They report that patient had become combative with her and son. EMS had given patient Ativan, Benadryl, and Haldol. On arrival to the ED, patient was noted to be upset. She was cooperative. She was medically cleared by the ED provider but family stated that they were felt unsafe to take patient back home. - Related Data Allergies/Adverse Reactions: Allergies Allergy/AdvReac Type Severity Reaction Status Date / Time atorvastatin [From Lipitor] Allergy Cannot Verified 01/11/20 19:26 Remember diazepam [From Valium] Allergy Cannot Verified 01/11/20 19:26 Remember ibuprofen Allergy Cannot Verified 01/11/20 19:26 Remember latex Allergy Cannot Verified 01/11/20 19:26 Remember meperidine [From Demerol] Allergy Cannot Verified 01/11/20 19:26 Remember propoxyphene [From Darvon] Allergy Cannot Verified 01/11/20 19:26 Remember shrimp Allergy Cannot Verified 01/11/20 19:26 Remember Sulfa (Sulfonamide Allergy Cannot Verified 01/11/20 19:26 Antibiotics) Remember tetracycline Allergy Cannot Verified 01/11/20 19:26 Remember Home Medications: Home Meds Aspirin 81 mg PO DAILY 05/21/19 [History] DULoxetine HCl [Duloxetine HCl] 60 mg PO DAILY 05/21/19 [History] Donepezil HCl [Aricept] 10 mg PO BEDTIME 05/21/19 [History] Hydrocodone/Acetaminophen [[place] 5-325 Tablet] 1 tab PO Q4HR PRN 05/21/19 [History] Loteprednol Etabonate 1 drop TOP BID 05/21/19 [History] Memantine HCl [Namenda] 10 mg PO BID 05/21/19 [History] Metoprolol Tartrate 100 mg PO BID 05/21/19 [History] Simvastatin 40 mg PO BEDTIME 05/21/19 [History] valACYclovir HCl [valACYclovir] 1 gm PO BID 05/21/19 [History] lisinopriL [Prinivil] 5 mg PO DAILY 30 Days #30 tablet 05/22/19 [Rx] Past Medical History HEENT History: Reports: Impaired Vision Cardiovascular History: Reports: Hypertension Musculoskeletal History: Reports: Arthritis Neurological History: Reports: TIA Psychiatric History: Reports: Anxiety, Dementia Social & Family History - Family History Family Medical History: Unobtainable - Tobacco Use Smoking Status *Q: Never Smoker - Caffeine Use Caffeine Use: Reports: Coffee - Recreational Drug Use Recreational Drug Use: No - Living Situation & Occupation Living situation: Reports: , with Spouse Occupation: Retired H&P Review of Systems - Review of Systems: Review Of Systems: Comprehensive ROS is negative, except as noted in HPI. Exam - Exam Exam: See Below - Vital Signs Vital Signs: Last Vital Signs Temp 98 F 01/11/20 19:00 Pulse 115 H 01/11/20 19:00 Resp 18 01/11/20 19:00 BP 154/80 H 01/11/20 19:00 Pulse Ox 97 01/11/20 19:00 Weight: 194 lb 9.6 oz - Exam General: Alert, Oriented, Cooperative HEENT: Conjunctiva Clear, EOMI, Hearing Intact, Mucosa Moist & [place] Neck: Supple, Trachea Midline Lungs: Clear to Auscultation, Normal Respiratory Effort Cardiovascular: Regular Rate, Regular Rhythm, Normal S1, Normal S2 GI/Abdominal Exam: Normal Bowel Sounds, Soft, Non-Tender, No Distention Extremities: Normal Inspection, Non-Tender, No Pedal Edema Peripheral Pulses: 2+: Radial (L), Radial (R), Dorsalis Pedis (L), Dorsalis Pedis (R) Skin: Warm, Dry, Intact Neuro Extensive - Mental Status: Alert, Oriented x3, Normal Mood/Affect Psychiatric: Alert, Normal Affect, Normal Mood - Patient Data Lab Results Last 24 hrs: Laboratory Results - last 24 hr 01/11/20 01/11/20 01/11/20 Range/Units 15:06 15:06 15:06 WBC 5.7 (5.0-10.0) 10^3/uL RBC 4.01 L (4.2-5.4) 10^6/uL Hgb 13.4 (12.0-16.0) g/dL Hct 41.6 (37.0-47.0) % MCV 103.7 H D (80-100) fL MCH 33.4 (27.0-34.0) pg MCHC 32.2 L (33.0-35.0) g/dL Plt Count 222 (150-450) 10^3/uL Neut % (Auto) 72.7 (42.2-75.2) % Lymph % (Auto) 20.6 (20.5-50.1) % [place] % (Auto) 5.9 (2-8) % Eos % (Auto) 0.5 L (1.0-3.0) % Baso % (Auto) 0.3 (0.0-1.0) % Sodium 141 (136-145) mmol/L Potassium 3.5 (3.5-5.1) mmol/L Chloride 103 (98-107) mmol/L Carbon Dioxide 27 (21-32) mmol/L Anion Gap 14.5 H (7-13) mEq/L BUN 9 (7-18) mg/dL Creatinine 1.09 H (0.55-1.02) mg/dL Est Cr Clr Drug Dosing 40.03 mL/min Estimated GFR (MDRD) 48 BUN/Creatinine Ratio 8.3 (No establ ref range) Glucose 202 H (74-99) mg/dL Calcium 8.7 (8.5-10.1) mg/dL Magnesium 1.8 (1.8-2.4) mg/dL Total Bilirubin 0.5 (0.2-1.0) mg/dL AST 17 (15-37) U/L ALT 20 (14-59) U/L Alkaline Phosphatase 73 (46-116) U/L Total Protein 7.1 (6.4-8.2) g/dL Albumin 3.8 (3.4-5.0) g/dL Globulin 3.3 Albumin/Globulin Ratio 1.2 TSH, Ultra Sensitive 0.79 (0.36-3.74) uIU/mL Urine Color (YELLOW) Urine Appearance (CLEAR) Urine pH (5.0-9.0) Ur Specific [place] (1.005-1.030) Urine Protein (NEGATIVE) Urine Glucose (UA) (NEGATIVE) Urine Ketones (NEGATIVE) Urine Occult Blood (NEGATIVE) Urine Nitrite (NEGATIVE) Urine Bilirubin (NEGATIVE) Urine Urobilinogen (0.2-1.0) mg/dL Ur Leukocyte Esterase (NEGATIVE) Urine RBC /HPF Urine WBC (0-5/HPF) /HPF Ur Epithelial Cells (NOT SEEN) /HPF Urine Bacteria (0-FEW/HPF) /HPF Urinalysis Comment Salicylates < 2.8 L (2.8-20(Therapeutic)) mg/dL Urine Opiates Screen (NEGATIVE) Ur Oxycodone Screen (NEGATIVE) Urine Methadone Screen (NEGATIVE) Acetaminophen 2 L (10-30 (Therapeutic)) ug/mL Ur Barbiturates Screen (NEGATIVE) U Tricyclic Antidepress (NEGATIVE) Ur Phencyclidine Scrn (NEGATIVE) Ur Amphetamine Screen (NEGATIVE) U Methamphetamines Scrn (NEGATIVE) Urine MDMA Screen (NEGATIVE) U Benzodiazepines Scrn (NEGATIVE) Urine Cocaine Screen (NEGATIVE) U Marijuana (THC) Screen (NEGATIVE) Ethyl Alcohol < 3 (0) mg/dL 01/11/20 01/11/20 Range/Units 15:50 15:50 WBC (5.0-10.0) 10^3/uL RBC (4.2-5.4) 10^6/uL Hgb (12.0-16.0) g/dL Hct (37.0-47.0) % MCV (80-100) fL MCH (27.0-34.0) pg MCHC (33.0-35.0) g/dL Plt Count (150-450) 10^3/uL Neut % (Auto) (42.2-75.2) % Lymph % (Auto) (20.5-50.1) % [place] % (Auto) (2-8) % Eos % (Auto) (1.0-3.0) % Baso % (Auto) (0.0-1.0) % Sodium (136-145) mmol/L Potassium (3.5-5.1) mmol/L Chloride (98-107) mmol/L Carbon Dioxide (21-32) mmol/L Anion Gap (7-13) mEq/L BUN (7-18) mg/dL Creatinine (0.55-1.02) mg/dL Est Cr Clr Drug Dosing mL/min Estimated GFR (MDRD) BUN/Creatinine Ratio (No establ ref range) Glucose (74-99) mg/dL Calcium (8.5-10.1) mg/dL Magnesium (1.8-2.4) mg/dL Total Bilirubin (0.2-1.0) mg/dL AST (15-37) U/L ALT (14-59) U/L Alkaline Phosphatase (46-116) U/L Total Protein (6.4-8.2) g/dL Albumin (3.4-5.0) g/dL Globulin Albumin/Globulin Ratio TSH, Ultra Sensitive (0.36-3.74) uIU/mL Urine Color Yellow (YELLOW) Urine Appearance Clear (CLEAR) Urine pH 6.0 (5.0-9.0) Ur Specific [place] 1.025 (1.005-1.030) Urine Protein 30 H (NEGATIVE) Urine Glucose (UA) Negative (NEGATIVE) Urine Ketones Negative (NEGATIVE) Urine Occult Blood Negative (NEGATIVE) Urine Nitrite Negative (NEGATIVE) Urine Bilirubin Negative (NEGATIVE) Urine Urobilinogen 0.2 (0.2-1.0) mg/dL Ur Leukocyte Esterase Negative (NEGATIVE) Urine RBC 0-5 /HPF Urine WBC 0-5 (0-5/HPF) /HPF Ur Epithelial Cells Rare (NOT SEEN) /HPF Urine Bacteria Rare (0-FEW/HPF) /HPF Urinalysis Comment See note Salicylates (2.8-20(Therapeutic)) mg/dL Urine Opiates Screen Positive H (NEGATIVE) Ur Oxycodone Screen Positive H (NEGATIVE) Urine Methadone Screen Negative (NEGATIVE) Acetaminophen (10-30 (Therapeutic)) ug/mL Ur Barbiturates Screen Negative (NEGATIVE) U Tricyclic Antidepress Negative (NEGATIVE) Ur Phencyclidine Scrn Negative (NEGATIVE) Ur Amphetamine Screen Negative (NEGATIVE) U Methamphetamines Scrn Negative (NEGATIVE) Urine MDMA Screen Negative (NEGATIVE) U Benzodiazepines Scrn Positive H (NEGATIVE) Urine Cocaine Screen Negative (NEGATIVE) U Marijuana (THC) Screen Negative (NEGATIVE) Ethyl Alcohol (0) mg/dL Result Diagrams: 01/11/20 15:06 01/11/20 15:06 - Problem List (1) Dementia, Alzheimer's, with behavior disturbance SNOMED Code(s): 9735829265835 ICD Code: G30.9 - ALZHEIMER'S DISEASE, UNSPECIFIED; F02.81 - DEMENTIA IN OTH DISEASES CLASSD ELSWHR W BEHAVIORAL DISTURB Status: Acute Current Visit: No Qualifiers: Alzheimer's disease onset: unspecified onset Qualified Code(s): G30.9 - Alzheimer's disease, unspecified; F02.81 - Dementia in other diseases classified elsewhere with behavioral disturbance (2) Hypertension SNOMED Code(s): 90337263 ICD Code: I10 - ESSENTIAL (PRIMARY) HYPERTENSION Status: Acute Current Visit: No Qualifiers: Hypertension type: unspecified Qualified Code(s): I10 - Essential (primary) hypertension (3) Diabetes SNOMED Code(s): 90529750 ICD Code: E11.9 - TYPE 2 DIABETES MELLITUS WITHOUT COMPLICATIONS Status: Acute Current Visit: Yes (4) Anxiety and depression SNOMED Code(s): 995739590 ICD Code: F41.9 - ANXIETY DISORDER, UNSPECIFIED; F32.9 - MAJOR DEPRESSIVE D ISORDER, SINGLE EPISODE, UNSPECIFIED Status: Acute Current Visit: Yes (5) Dyslipidemia SNOMED Code(s): 652533262 ICD Code: E78.5 - HYPERLIPIDEMIA, UNSPECIFIED Status: Acute Current Visit: Yes Problem List Initiated/Reviewed/Updated: Yes Orders Last 24hrs: Active Orders 24 hr Category Date Time Status Admission Diagnosis [ADT] Routine ADT 01/11/20 18:45 Ordered Patient Status [ADT] Routine ADT 01/11/20 18:42 Active Oxygen Therapy [RC] PRN Care 01/11/20 19:22 Ordered VTE/DVT Education [RC] PER UNIT ROUTINE Care 01/11/20 19:22 Ordered Vital Signs [RC] Q4H Care 01/11/20 19:22 Ordered Consult to Behavioral Health [Behavioral Health Cons 01/11/20 14:53 Active Evaluation] [CONS] Routine Regular Diet [DIET] Diet 01/11/20 Dinner Ordered Acetaminophen [Tylenol] Med 01/11/20 19:22 Ordered 650 mg PO Q6H PRN Enoxaparin [Lovenox] Med 01/12/20 09:00 Ordered 40 mg SUBCUT DAILY Ondansetron [Zofran ODT] Med 01/11/20 19:22 Ordered 4 mg PO Q6H PRN Ondansetron [Zofran] Med 01/11/20 19:22 Ordered 4 mg IVPUSH Q6H PRN Resuscitation Status Routine Resus Stat 01/11/20 19:22 Ordered Medication Orders Acetaminophen (Tylenol) 650 mg PO Q6H PRN PRN Reason: Pain (Mild 1-3)/fever Enoxaparin Sodium (Lovenox) 40 mg SUBCUT DAILY JAILYN Ondansetron HCl (Zofran Odt) 4 mg PO Q6H PRN PRN Reason: nausea, able to take PO Ondansetron HCl (Zofran) 4 mg IVPUSH Q6H PRN PRN Reason: Nausea/Vomiting Assessment/Plan Comment:: Dementia: #Reported agitation Patient calm and cooperative at this point and also reported to be calm and cooperative in the ED Monitor for now Frequent reorientation Provide calm environment Delirium prevention precautions #Type 2 diabetes: Continue home meds Sliding scale insulin hypoglycemia protocol #Hypertension: Blood pressures at goal Continue home medications DVT prophylaxis: Lovenox GI prophylaxis: General diet CODE STATUS: At this point, due to patient's dementia, will keep patient is full code until further information can be obtained from patient's family in the morning.
[2020-01-11] MEDS ORDERED: Donepezil 10 MG Tab PO SCH (21:00)
[2020-01-11] MEDS ORDERED: VALACYCLOVIR HCL 1 GM PO SCH (21:00)
[2020-01-11] MEDS ORDERED: Simvastatin 40 MG Tab PO SCH (21:00)
[2020-01-11] MEDS ORDERED: LOTEPREDNOL ETABONATE TOP SCH (21:00)
[2020-01-11] MEDS: Metoprolol Tartrate 50 MG Tab PO SCH (21:56)
[2020-01-11] MEDS: Memantine 10 MG Tab PO SCH (21:56)
[2020-01-12] MEDS ORDERED: Aspirin 81 MG Tab.Chew PO SCH (09:00)
[2020-01-12] MEDS ORDERED: Enoxaparin 40 MG/0.4 ML Syringe SUBCUT SCH (09:00)
[2020-01-12] MEDS ORDERED: DULoxetine 30 MG Cap PO SCH (09:00)
[2020-01-12] MEDS ORDERED: Lisinopril 5 MG Tab PO SCH (09:00)
[2020-01-12] MEDS: Memantine 10 MG Tab PO SCH (09:40)
[2020-01-12] MEDS: Metoprolol Tartrate 50 MG Tab PO SCH (09:40)
--- NOTE | 2020-01-12 11:34 | PCM.DCSUM1 ---
Discharge Summary - Hospital Course Free Text/Narrative:: Patient is is an 79-year-old female with medical history significant for hypertension, dyslipidemia, type 2 diabetes, GERD, dementia, anxiety and depression, and Sjogren's syndrome who was brought to the ED by police after refusing to cooperate with ambulance crew. Patient reports that there was some issues in her family and she became upset. Reports that she is doing okay. Denies chest pain, shortness of breath, fevers, chills, nausea, vomiting, diarrhea, constipation, dysuria, hematuria, visual and auditory hallucinations, homicidal, or suicidal ideations. ED documentation, patient was brought by the police department because patient did not complete with a blood screw. Family had called the patient's PCP to express concerns about patient's safety due to mild worsening dementia. They report that patient had become combative with her and son. EMS had given patient Ativan, Benadryl, and Haldol. On arrival to the ED, patient was noted to be upset. She was cooperative. She was medically cleared by the ED provider but family stated that they were felt unsafe to take patient back home. Patient has been stable overnight. No agitation or confusion overnight. Patient is being discharged home to follow up with PCP. PCP to consider referral to psychiatry. HPI Initial Comments: Patient is is an 79-year-old female with medical history significant for hypertension, dyslipidemia, type 2 diabetes, GERD, dementia, anxiety and depression, and Sjogren's syndrome who was brought to the ED by police after refusing to cooperate with ambulance crew. Patient reports that there was some issues in her family and she became upset. Reports that she is doing okay. Denies chest pain, shortness of breath, fevers, chills, nausea, vomiting, diarrhea, constipation, dysuria, hematuria, visual and auditory hallucinations, homicidal, or suicidal ideations. ED documentation, patient was brought by the police department because patient did not complete with a blood screw. Family had called the patient's PCP to express concerns about patient's safety due to mild worsening dementia. They report that patient had become combative with her and son. EMS had given patient Ativan, Benadryl, and Haldol. On arrival to the ED, patient was noted to be upset. She was cooperative. She was medically cleared by the ED provider but family stated that they were felt unsafe to take patient back home. Diagnosis: Stroke: No - Discharge Data Discharge Date: 01/12/20 Discharge Disposition: Home, Self-Care 01 Condition: Good - Referral to Home Health Primary Care Physician: PCP Unobtainable - Discharge Diagnosis/Problem(s) (1) Dementia, Alzheimer's, with behavior disturbance SNOMED Code(s): 4070985961214 ICD Code: G30.9 - ALZHEIMER'S DISEASE, UNSPECIFIED; F02.81 - DEMENTIA IN OTH DISEASES CLASSD ELSWHR W BEHAVIORAL DISTURB Status: Acute Current Visit: No Qualifiers: Alzheimer's disease onset: unspecified onset Qualified Code(s): G30.9 - Alzheimer's disease, unspecified; F02.81 - Dementia in other diseases classified elsewhere with behavioral disturbance (2) Hypertension SNOMED Code(s): 16128382 ICD Code: I10 - ESSENTIAL (PRIMARY) HYPERTENSION Status: Acute Current Visit: No Qualifiers: Hypertension type: unspecified Qualified Code(s): I10 - Essential (primary) hypertension (3) Diabetes SNOMED Code(s): 85333886 ICD Code: E11.9 - TYPE 2 DIABETES MELLITUS WITHOUT COMPLICATIONS Status: Acute Current Visit: Yes (4) Anxiety and depression SNOMED Code(s): 774669322 ICD Code: F41.9 - ANXIETY DISORDER, UNSPECIFIED; F32.9 - MAJOR DEPRESSIVE DISORDER, SINGLE EPISODE, UNSPECIFIED Status: Acute Current Visit: Yes (5) Dyslipidemia SNOMED Code(s): 208660266 ICD Code: E78.5 - HYPERLIPIDEMIA, UNSPECIFIED Status: Acute Current Visit: Yes - Patient Summary/Data Consults: Consultations 01/11/20 14:53 Consult to Behavioral Health [Behavioral Health Evaluation] [CONS] Routine - Discharge Plan *PRESCRIPTION DRUG MONITORING PROGRAM REVIEWED*: No *COPY OF PRESCRIPTION DRUG MONITORING REPORT IN PATIENT WIN: No Home Medications: Home Meds Aspirin 81 mg PO DAILY 05/21/19 [History] DULoxetine HCl [Duloxetine HCl] 60 mg PO DAILY 05/21/19 [History] Donepezil HCl [Aricept] 10 mg PO BEDTIME 05/21/19 [History] Hydrocodone/Acetaminophen [[place] 5-325 Tablet] 1 tab PO Q4HR PRN 05/21/19 [History] Loteprednol Etabonate 1 drop TOP BID 05/21/19 [History] Memantine HCl [Namenda] 10 mg PO BID 05/21/19 [History] Metoprolol Tartrate 100 mg PO BID 05/21/19 [History] Simvastatin 40 mg PO BEDTIME 05/21/19 [History] valACYclovir HCl [valACYclovir] 1 gm PO BID 05/21/19 [History] lisinopriL [Prinivil] 5 mg PO DAILY 30 Days #30 tablet 05/22/19 [Rx] Patient Handouts: Alzheimer Disease Caregiver Guide Forms: ED Department Discharge Referrals: PCP,Unobtain [Primary Care Provider] - - Discharge Summary/Plan Comment DC Time >30 min.: Yes - General Info Date of Service: 01/12/20 Admission Dx/Problem (Free Text: Admission Diagnosis/Problem Admission Diagnosis/Problem Altered mental status Subjective Update: No acute events overnight. Denies fevers, chills, chest pain, shortness of daryl ath, n/v/d/c, dysuria, hematuria, or any new symptoms. Denies VH, AH, SI, or HI. - Patient Data Vitals - Most Recent: Last Vital Signs Temp 98.8 F 01/12/20 08:25 Pulse 82 01/12/20 09:40 Resp 20 01/12/20 08:25 BP 213/95 H 01/12/20 09:40 Pulse Ox 94 L 01/12/20 08:25 Weight - Most Recent: 194 lb 9.6 oz I&O - Last 24 hours: Intake & Output 01/11/20 01/12/20 01/12/20 22:59 06:59 14:59 Intake Total 240 Balance 240 Lab Results - Last 24 hrs: Laboratory Results - last 24 hr 01/11/20 01/11/20 01/11/20 Range/Units 15:06 15:06 15:06 WBC 5.7 (5.0-10.0) 10^3/uL RBC 4.01 L (4.2-5.4) 10^6/uL Hgb 13.4 (12.0-16.0) g/dL Hct 41.6 (37.0-47.0) % MCV 103.7 H D (80-100) fL MCH 33.4 (27.0-34.0) pg MCHC 32.2 L (33.0-35.0) g/dL Plt Count 222 (150-450) 10^3/uL Neut % (Auto) 72.7 (42.2-75.2) % Lymph % (Auto) 20.6 (20.5-50.1) % Winn % (Auto) 5.9 (2-8) % Eos % (Auto) 0.5 L (1.0-3.0) % Baso % (Auto) 0.3 (0.0-1.0) % Sodium 141 (136-145) mmol/L Potassium 3.5 (3.5-5.1) mmol/L Chloride 103 (98-107) mmol/L Carbon Dioxide 27 (21-32) mmol/L Anion Gap 14.5 H (7-13) mEq/L BUN 9 (7-18) mg/dL Creatinine 1.09 H (0.55-1.02) mg/dL Est Cr Clr Drug Dosing 40.03 mL/min Estimated GFR (MDRD) 48 BUN/Creatinine Ratio 8.3 (No establ ref range) Glucose 202 H (74-99) mg/dL Calcium 8.7 (8.5-10.1) mg/dL Magnesium 1.8 (1.8-2.4) mg/dL Total Bilirubin 0.5 (0.2-1.0) mg/dL AST 17 (15-37) U/L ALT 20 (14-59) U/L Alkaline Phosphatase 73 (46-116) U/L Total Protein 7.1 (6.4-8.2) g/dL Albumin 3.8 (3.4-5.0) g/dL Globulin 3.3 Albumin/Globulin Ratio 1.2 TSH, Ultra Sensitive 0.79 (0.36-3.74) uIU/mL Urine Color (YELLOW) Urine Appearance (CLEAR) Urine pH (5.0-9.0) Ur Specific [place] (1.005-1.030) Urine Protein (NEGATIVE) Urine Glucose (UA) (NEGATIVE) Urine Ketones (NEGATIVE) Urine Occult Blood (NEGATIVE) Urine Nitrite (NEGATIVE) Urine Bilirubin (NEGATIVE) Urine Urobilinogen (0.2-1.0) mg/dL Ur Leukocyte Esterase (NEGATIVE) Urine RBC /HPF Urine WBC (0-5/HPF) /HPF Ur Epithelial Cells (NOT SEEN) /HPF Urine Bacteria (0-FEW/HPF) /HPF Urinalysis Comment Salicylates < 2.8 L (2.8-20(Therapeutic)) mg/dL Urine Opiates Screen (NEGATIVE) Ur Oxycodone Screen (NEGATIVE) Urine Methadone Screen (NEGATIVE) Acetaminophen 2 L (10-30 (Therapeutic)) ug/mL Ur Barbiturates Screen (NEGATIVE) U Tricyclic Antidepress (NEGATIVE) Ur Phencyclidine Scrn (NEGATIVE) Ur Amphetamine Screen (NEGATIVE) U Methamphetamines Scrn (NEGATIVE) Urine MDMA Screen (NEGATIVE) U Benzodiazepines Scrn (NEGATIVE) Urine Cocaine Screen (NEGATIVE) U Marijuana (THC) Screen (NEGATIVE) Ethyl Alcohol < 3 (0) mg/dL 01/11/20 01/11/20 Range/Units 15:50 15:50 WBC (5.0-10.0) 10^3/uL RBC (4.2-5.4) 10^6/uL Hgb (12.0-16.0) g/dL Hct (37.0-47.0) % MCV (80-100) fL MCH (27.0-34.0) pg MCHC (33.0-35.0) g/dL Plt Count (150-450) 10^3/uL Neut % (Auto) (42.2-75.2) % Lymph % (Auto) (20.5-50.1) % Winn % (Auto) (2-8) % Eos % (Auto) (1.0-3.0) % Baso % (Auto) (0.0-1.0) % Sodium (136-145) mmol/L Potassium (3.5-5.1) mmol/L Chloride (98-107) mmol/L Carbon Dioxide (21-32) mmol/L Anion Gap (7-13) mEq/L BUN (7-18) mg/dL Creatinine (0.55-1.02) mg/dL Est Cr Clr Drug Dosing mL/min Estimated GFR (MDRD) BUN/Creatinine Ratio (No establ ref range) Glucose (74-99) mg/dL Calcium (8.5-10.1) mg/dL Magnesium (1.8-2.4) mg/dL Total Bilirubin (0.2-1.0) mg/dL AST (15-37) U/L ALT (14-59) U/L Alkaline Phosphatase (46-116) U/L Total Protein (6.4-8.2) g/dL Albumin (3.4-5.0) g/dL Globulin Albumin/Globulin Ratio TSH, Ultra Sensitive (0.36-3.74) uIU/mL Urine Color Yellow (YELLOW) Urine Appearance Clear (CLEAR) Urine pH 6.0 (5.0-9.0) Ur Specific [place] 1.025 (1.005-1.030) Urine Protein 30 H (NEGATIVE) Urine Glucose (UA) Negative (NEGATIVE) Urine Ketones Negative (NEGATIVE) Urine Occult Blood Negative (NEGATIVE) Urine Nitrite Negative (NEGATIVE) Urine Bilirubin Negative (NEGATIVE) Urine Urobilinogen 0.2 (0.2-1.0) mg/dL Ur Leukocyte Esterase Negative (NEGATIVE) Urine RBC 0-5 /HPF Urine WBC 0-5 (0-5/HPF) /HPF Ur Epithelial Cells Rare (NOT SEEN) /HPF Urine Bacteria Rare (0-FEW/HPF) /HPF Urinalysis Comment See note Salicylates (2.8-20(Therapeutic)) mg/dL Urine Opiates Screen Positive H (NEGATIVE) Ur Oxycodone Screen Positive H (NEGATIVE) Urine Methadone Screen Negative (NEGATIVE) Acetaminophen (10-30 (Therapeutic)) ug/mL Ur Barbiturates Screen Negative (NEGATIVE) U Tricyclic Antidepress Negative (NEGATIVE) Ur Phencyclidine Scrn Negative (NEGATIVE) Ur Amphetamine Screen Negative (NEGATIVE) U Methamphetamines Scrn Negative (NEGATIVE) Urine MDMA Screen Negative (NEGATIVE) U Benzodiazepines Scrn Positive H (NEGATIVE) Urine Cocaine Screen Negative (NEGATIVE) U Marijuana (THC) Screen Negative (NEGATIVE) Ethyl Alcohol (0) mg/dL Med Orders - Current: Current Medications Acetaminophen (Tylenol) 650 mg PO Q6H PRN PRN Reason: Pain (Mild 1-3)/fever Hydrocodone Bitart/Acetaminophen ([place] 325-5 Mg) 1 tab PO Q4HR PRN PRN Reason: Pain Aspirin (Aspirin) 81 mg PO DAILY [facility] Last Admin: 01/12/20 09:39 Dose: 81 mg Documented by: Donepezil HCl (Aricept) 10 mg PO BEDTIME [facility] Last Admin: 01/11/20 21:56 Dose: 10 mg Documented by: Duloxetine HCl (Cymbalta) 60 mg PO DAILY [facility] Last Admin: 01/12/20 09:39 Dose: 60 mg Documented by: Enoxaparin Sodium (Lovenox) 40 mg SUBCUT DAILY [facility] Last Admin: 01/12/20 09:46 Dose: Not Given Documented by: Lisinopril (Prinivil) 5 mg PO DAILY [facility] Last Admin: 01/12/20 09:39 Dose: 5 mg Documented by: Memantine (Namenda) 10 mg PO BID [facility] Last Admin: 01/12/20 09:40 Dose: 10 mg Documented by: Metoprolol Tartrate (Lopressor) 100 mg PO BID [facility] Last Admin: 01/12/20 09:40 Dose: 100 mg Documented by: Non-Formulary Medication (Loteprednol Etabonate [Loteprednol Etabonate]) 1 drop TOP BID [facility] Non-Formulary Medication (Valacyclovir Hcl [Valacyclovir]) 1 gm PO BID [facility] Ondansetron HCl (Zofran Odt) 4 mg PO Q6H PRN PRN Reason: nausea, able to take PO Ondansetron HCl (Zofran) 4 mg IVPUSH Q6H PRN PRN Reason: Nausea/Vomiting Simvastatin (Zocor) 40 mg PO BEDTIME [facility] Last Admin: 01/11/20 21:56 Dose: 40 mg Documented by: - Exam General: Reports: Alert, Oriented (x4), Cooperative, No Acute Distress HEENT: Reports: Pupils Equal, Pupils Reactive Neck: Reports: Supple, Trachea Midline Lungs: Reports: Clear to Auscultation, Normal Respiratory Effort Cardiovascular: Reports: Regular Rate, Regular Rhythm GI/Abdominal Exam: Normal Bowel Sounds, Soft, Non-Tender, No Distention Extremities: Normal Inspection, Non-Tender Skin: Reports: Warm, Dry, Intact Neurological: Reports: No New Focal Deficit Psy/Mental Status: Reports: Alert, Normal Affect, Normal Mood
[2020-01-12] MEDS ORDERED: LORazepam 1 MG Tab PO ONE (15:33)
== END 2020-01-12 16:00 | disposition home or self-care (01) ==
LOC: DL.ED 14:46 → DL.MS 18:42
PROVIDERS: ADMIT Internal Medicine; ATTEND Internal Medicine
DX: G30.9 Alzheimer's disease, unspecified (principal); F02.81 Dementia in other diseases classified elsewhere, unspecified severity, with behavioral disturbance; E78.5 Hyperlipidemia, unspecified; E11.9 Type 2 diabetes mellitus without complications; I10 Essential (primary) hypertension; K21.9 Gastro-esophageal reflux disease without esophagitis; F32.9 Major depressive disorder, single episode, unspecified; F41.9 Anxiety disorder, unspecified; M35.00 Sjogren syndrome, unspecified; Z91.040 Latex allergy status; Z88.2 Allergy status to sulfonamides; Z88.1 Allergy status to other antibiotic agents; Z88.5 Allergy status to narcotic agent; Z88.6 Allergy status to analgesic agent; Z88.8 Allergy status to other drugs, medicaments and biological substances; Z79.899 Other long term (current) drug therapy; Z79.82 Long term (current) use of aspirin
CPT/HCPCS: 36415; 80053; 80305; 80307; 81001; 83735; 84443; 85025; 99285; A9270; 99217; 99219; 99283; G0378

== ENCOUNTER 2021-03-25 08:35 | Emergency (ER) | payer MEDICARE, BC ==
--- NOTE | 2021-03-25 09:19 | CT ---
PROCEDURE INFORMATION: Exam: CT Head Without Contrast Exam date and time: 03/25/2021 8:59 AM Age: 80 years old Clinical indication: Other: Possible CVA TECHNIQUE: Imaging protocol: Computed tomography of the head without contrast. Radiation optimization: All CT scans at this facility use at least one of these dose optimization techniques: automated exposure control; mA and/or kV adjustment per patient size (includes targeted exams where dose is matched to clinical indication); or iterative reconstruction. Other technique: STROKE PROTOCOL was implemented. COMPARISON: CT Head wo Cont 05/21/2019 12:53 AM FINDINGS: Brain: Prominent sulci. Patchy hypodensity of the cerebral white matter which are nonspecific but likely secondary to microangiopathic changes. Remote left frontal and occipital infarcts. Cerebral ventricles: The ventricles are prominent secondary to diffuse volume loss/atrophy. Paranasal sinuses: Visualized sinuses are unremarkable. No fluid levels. Mastoid air cells: Visualized mastoid air cells are well aerated. Bones/joints: Unremarkable. No acute fracture. Soft tissues: Unremarkable. IMPRESSION: Chronic age related and remote ischemic changes but no evidence of acute intracranial pathology. ASSESSMENT: ASPECTS ([place] Stroke Program Early CT Score) is 10.
--- NOTE | 2021-03-25 09:41 | EDM.PDOC ---
ED HPI GENERAL MEDICAL PROBLEM - General Stated Complaint: AMBULANCE Time Seen by Provider: 03/25/21 09:30 Source of Information: Reports: Patient, Family, Penitentiary Records History Limitations: Reports: No Limitations - History of Present Illness INITIAL COMMENTS - FREE TEXT/NARRATIVE: This 80 yo female patient was brought to the ED by [facility] due to left sided facial droop. The half-way reports they passed medications this morning at 0805 and the patient appeared to be normal. The patient walked into the half-way directors office at 0820 reporting that she felt funny. At that time, the [facility] director noticed the left sided facial droop. The patient's reports the patient did have a similar event about 30 years ago, but all of the symptoms had resolved prior to getting to the ED. The reports he does notice some left sided weakness. The reports the left side of her mouth seems to "sag" more than normally. The patient has a past history of hypertendion, diabetes (Type 2), dementia, anxiety and depression. Onset: Today Onset Date: 03/25/21 Onset Time: 08:20 Duration: Constant Location: Reports: Face (left lateral mouth droop) Quality: Reports: Other Severity: Moderate Improves with: Reports: None Worsens with: Reports: None Context: Reports: Other Associated Symptoms: Reports: No Other Symptoms - Related Data Allergies Allergy/AdvReac Type Severity Reaction Status Date / Time atorvastatin [From Lipitor] Allergy Cannot Verified 01/11/20 19:26 Remember diazepam [From Valium] Allergy Cannot Verified 01/11/20 19:26 Remember fentanyl Allergy Cannot Verified 03/25/21 09:17 Remember ibuprofen Allergy Cannot Verified 01/11/20 19:26 Remember latex Allergy Cannot Verified 01/11/20 19:26 Remember meperidine [From Demerol] Allergy Cannot Verified 01/11/20 19:26 Remember Penicillins Allergy Cannot Verified 03/25/21 09:17 Remember propoxyphene [From Darvon] Allergy Cannot Verified 01/11/20 19:26 Remember shrimp Allergy Cannot Verified 01/11/20 19:26 Remember Sulfa (Sulfonamide Allergy Cannot Verified 01/11/20 19:26 Antibiotics) Remember tetracycline Allergy Cannot Verified 01/11/20 19:26 Remember Home Meds: Home Meds Aspirin 81 mg PO DAILY 05/21/19 [History] Donepezil HCl [Aricept] 10 mg PO BEDTIME 05/21/19 [History] Memantine HCl [Namenda] 10 mg PO BID 05/21/19 [History] Metoprolol Tartrate 50 mg PO BID 05/21/19 [History] Simvastatin 40 mg PO BEDTIME 05/21/19 [History] Acetaminophen [Tylenol Extra Strength] 500 mg PO Q4HR PRN 03/25/21 [History] Brimonidine Tartrate [Brimonidine Tartrate 0.2% Ophth Soln] 1 drop EYELF BID 03/25/21 [History] Carboxymethylcellulose Sodium [Refresh Plus] 1 drop EYEBOTH QID PRN 03/25/21 [History] Divalproex Sodium [Depakote ER] 125 mg PO BID 03/25/21 [History] Erythromycin Base [Erythromycin 0.5% Ophth Oint] 0.5 strip EYEBOTH DAILY 03/25/21 [History] Escitalopram Oxalate [Lexapro] 20 mg PO DAILY 03/25/21 [History] LORazepam [Ativan] 1 mg PO DAILY 03/25/21 [History] Magnesium Hydroxide [Milk of Magnesia] 30 ml PO DAILY PRN 03/25/21 [History] Primidone [Mysoline] 50 mg PO BID 03/25/21 [History] lisinopriL [Prinivil] 10 mg PO DAILY 03/25/21 [History] Past Medical History HEENT History: Reports: Impaired Vision Cardiovascular History: Reports: Hypertension Musculoskeletal History: Reports: Arthritis Neurological History: Reports: TIA Psychiatric History: Reports: Anxiety, Dementia Social & Family History - Family History Family Medical History: Unobtainable - Caffeine Use Caffeine Use: Reports: Coffee - Living Situation & Occupation Living situation: Reports: , with Spouse Occupation: Retired ED ROS GENERAL - Review of Systems Review Of Systems: Comprehensive ROS is negative, except as noted in HPI. ED EXAM, NEURO - Physical Exam Exam: See Below Exam Limited By: No Limitations General Appearance: Alert, WD/WN, Mild Distress Eye Exam: Left Eye: Normal Inspection (Droop, but reports she always has problems with her left eye.), Bilateral Eye: EOMI, PERRL Ears: Normal External Exam, Normal Canal, Hearing Grossly Normal, Normal TMs Nose: Normal Inspection, Normal Mucosa, No Blood Throat/Mouth: Other (Left sided droop lip) Head Exam: Atraumatic, Normocephalic Neck: Normal Inspection, Supple, Non-Tender, Full Range of Motion Respiratory/Chest: No Respiratory Distress, Lungs Clear, Normal Breath Sounds, No Accessory Muscle Use, Chest Non-Tender Cardiovascular: Irregularly Irregular GI/Abdominal: Normal Bowel Sounds, Soft, Non-Tender, No Organomegaly, No Distention, No Abnormal Bruit, No Mass (Female) Exam: Deferred Rectal (Female) Exam: Deferred Neurological: Alert, Normal Mood/Affect Back Exam: Normal Inspection, Full Range of Motion, NT Extremities: Normal Inspection, Normal Range of Motion, Non-Tender, No Pedal Edema, Normal Capillary Refill Psychiatric: Normal Affect, Normal Mood Skin Exam: Warm, Dry, Intact, Normal Color, No Rash Course - Vital Signs Last Recorded V/S: Last Vital Signs Temp 97.2 F 03/25/21 09:19 Pulse 66 03/25/21 09:19 Resp 16 03/25/21 09:19 BP 172/94 H 03/25/21 09:19 Pulse Ox 96 03/25/21 09:19 - Orders/Labs/Meds Orders: Active Orders 24 hr Category Date Time Status CORONAVIRUS COVID-19 JANI [MOLEC] Stat Lab 03/25/21 08:55 Received CULTURE BLOOD [BC] Stat Lab 03/25/21 09:06 Received REFLEX LACTIC ACID YES OR NO [CHEM] Routine Lab 03/25/21 09:37 Received UA RFX VIRGEN AND CULT IF INDIC [URIN] Urgent Lab 03/25/21 08:37 Ordered Labs: Laboratory Tests 03/25/21 03/25/21 03/25/21 Range/Units 08:06 09:06 09:06 WBC 4.6 L (5.0-10.0) 10^3/uL RBC 4.24 (4.2-5.4) 10^6/uL Hgb 13.0 (12.0-16.0) g/dL Hct 41.1 (37.0-47.0) % MCV 96.9 D (80-100) fL MCH 30.7 (27.0-34.0) pg MCHC 31.6 L (33.0-35.0) g/dL Plt Count 181 (150-450) 10^3/uL Neut % (Auto) 57.5 (42.2-75.2) % Lymph % (Auto) 30.1 (20.5-50.1) % [place] % (Auto) 9.2 H (2-8) % Eos % (Auto) 2.8 (1.0-3.0) % Baso % (Auto) 0.4 (0.0-1.0) % PT (9.0-12.0) SEC INR (0.9-1.2) Sodium 146 H (136-145) mmol/L Potassium 4.9 (3.5-5.1) mmol/L Chloride 108 H (98-107) mmol/L Carbon Dioxide 30 (21-32) mmol/L Anion Gap 12.9 (7-13) mEq/L BUN 10 (7-18) mg/dL Creatinine 0.89 (0.55-1.02) mg/dL Est Cr Clr Drug Dosing 46.41 mL/min Estimated GFR (MDRD) > 60 BUN/Creatinine Ratio 11.2 (No establ ref range) Glucose 143 H (70-99) mg/dL Lactic Acid 2.7 H* (0.4-2.0) mmol/L Calcium 8.9 (8.5-10.1) mg/dL Total Bilirubin 0.3 (0.2-1.0) mg/dL AST 12 L (15-37) U/L ALT 15 (14-59) U/L Alkaline Phosphatase 71 (46-116) U/L Ammonia (11-32) umol/L Troponin I High Sens (<=51) pg/mL Total Protein 6.4 (6.4-8.2) g/dL Albumin 3.3 L (3.4-5.0) g/dL Globulin 3.1 Albumin/Globulin Ratio 1.06 03/25/21 03/25/21 03/25/21 Range/Units 09:06 09:06 09:06 WBC (5.0-10.0) 10^3/uL RBC (4.2-5.4) 10^6/uL Hgb (12.0-16.0) g/dL Hct (37.0-47.0) % MCV (80-100) fL MCH (27.0-34.0) pg MCHC (33.0-35.0) g/dL Plt Count (150-450) 10^3/uL Neut % (Auto) (42.2-75.2) % Lymph % (Auto) (20.5-50.1) % [place] % (Auto) (2-8) % Eos % (Auto) (1.0-3.0) % Baso % (Auto) (0.0-1.0) % PT 10.1 (9.0-12.0) SEC INR 1.0 (0.9-1.2) Sodium (136-145) mmol/L Potassium (3.5-5.1) mmol/L Chloride (98-107) mmol/L Carbon Dioxide (21-32) mmol/L Anion Gap (7-13) mEq/L BUN (7-18) mg/dL Creatinine (0.55-1.02) mg/dL Est Cr Clr Drug Dosing mL/min Estimated GFR (MDRD) BUN/Creatinine Ratio (No establ ref range) Glucose (70-99) mg/dL Lactic Acid (0.4-2.0) mmol/L Calcium (8.5-10.1) mg/dL Total Bilirubin (0.2-1.0) mg/dL AST (15-37) U/L ALT (14-59) U/L Alkaline Phosphatase (46-116) U/L Ammonia 30 (11-32) umol/L Troponin I High Sens 7 (<=51) pg/mL Total Protein (6.4-8.2) g/dL Albumin (3.4-5.0) g/dL Globulin Albumin/Globulin Ratio - Re-Assessments/Exams Free Text/Narrative Re-Assessment/Exam: 03/25/21 10:01 A call was placed to [facility]. Consulted with Dr. Zacarias (Neurology). Dr. Zacarias agreed that she should be transferred to their facility for further evaluation and treatment. At this time, [facility] does not have any beds available, but the patient will be placed on their list. As beds become available, the patient will be accepted to [facility] in [place] and transferred. Departure - Departure Time of Disposition: 10:18 Disposition: DC/Tfer to Acute Hospital 02 Condition: Serious Clinical Impression: CVA (cerebral vascular accident) Qualifiers: CVA mechanism: unspecified Qualified Code(s): I63.9 - Cerebral infarction, unspecified - Discharge Information *PRESCRIPTION DRUG MONITORING PROGRAM REVIEWED*: Not Applicable *COPY OF PRESCRIPTION DRUG MONITORING REPORT IN PATIENT WIN: Not Applicable Forms: Interfacility Transfer EMTALA Care Plan Goals: Discussed the patient's history, examination, lab, EKG and CT results with Dr. Alcantara. Dr. Alcantara accepted the patient for continued evaluation and treatment through the ED at [facility] in [place]. The patient will be transported by [facility]. Sepsis Event Note (ED) - Evaluation Sepsis Screening Result: No Definite Risk - Focused Exam Vital Signs: Vital Signs Temp Pulse Resp BP Pulse Ox 03/25/21 09:19 97.2 F 66 16 172/94 H 96 - My Orders Last 24 Hours: My Active Orders 03/25/21 08:37 UA RFX VIRGEN AND CULT IF INDIC [URIN] Urgent 03/25/21 08:55 CORONAVIRUS COVID-19 JANI [MOLEC] Stat 03/25/21 09:06 CULTURE BLOOD [BC] Stat 03/25/21 09:37 REFLEX LACTIC ACID YES OR NO [CHEM] Routine - Assessment/Plan Last 24 Hours: My Active Orders 03/25/21 08:37 UA RFX VIRGEN AND CULT IF INDIC [URIN] Urgent 03/25/21 08:55 CORONAVIRUS COVID-19 JANI [MOLEC] Stat 03/25/21 09:06 CULTURE BLOOD [BC] Stat 03/25/21 09:37 REFLEX LACTIC ACID YES OR NO [CHEM] Routine
[2021-03-25 09:45] LABS: ANION GAP 12.9 mEq/L (7-13); CHLORIDE,CL 108 mmol/L (98-107); SODIUM,NA 146 mmol/L (136-145)
== END 2021-03-25 10:39 ==
LOC: DL.ED 08:35
DX: I63.9 Cerebral infarction, unspecified (principal); I10 Essential (primary) hypertension; E11.9 Type 2 diabetes mellitus without complications; Z88.0 Allergy status to penicillin; Z88.1 Allergy status to other antibiotic agents; Z88.2 Allergy status to sulfonamides; Z88.8 Allergy status to other drugs, medicaments and biological substances; Z91.040 Latex allergy status; Z91.013 Allergy to seafood; Z79.82 Long term (current) use of aspirin; Z79.899 Other long term (current) drug therapy
CPT/HCPCS: 36415; 70450; 80053; 81001; 82140; 83605; 84484; 85025; 85610; 87040; 87086; 93005; 99285; U0002

== ENCOUNTER 2024-07-27 17:35 | Inpatient (IN) | payer MEDICARE ==
[2024-07-27] MEDS: Iopamidol 755 Mg/ML 100 ML Bottle IVPUSH ONE (17:33)
[~2024-07-27 17:35] MED LIST: Sodium Chloride 0.9% 10 ML Syringe FLUSH PRN
[2024-07-27 17:50] LABS: BASOPHILS PERCENT AUTO 0.5 % (0.0-1.0); EOSINOPHILS PERCENT AUTO 1.8 % (1.0-3.0); HEMATOCRIT 37.9 % (37.0-47.0); HEMOGLOBIN 12.6 g/dL (12.0-16.0); LYMPHOCYTES PERCENT AUTO 37.5 % (20.5-50.1); MEAN CORPUSCULAR HEMOGLOBIN 31.8 pg (27.0-34.0); MEAN CORPUSCULAR HGB CONC 33.2 g/dL (33.0-35.0); MEAN CORPUSCULAR VOLUME 95.7 fL (80-100); MONOCYTES PERCENT AUTO 9.4 % (2-8); NEUTROPHILS PERCENT AUTO 50.8 % (42.2-75.2); PLATELET COUNT,PLT 186 10^3/uL (150-450); RED BLOOD CELL COUNT 3.96 10^6/uL (4.2-5.4); WHITE BLOOD CELL COUNT,WBC 6.1 10^3/uL (5.0-10.0)
[2024-07-27 18:10] LABS: ALANINE AMINOTRANSFERASE,ALT 19 U/L (14-59); ALBUMIN 3.1 g/dL (3.4-5.0); ALKALINE PHOSPHATASE 94 U/L (46-116); ASPARTATE AMNIOTRANSFERASE,AST 16 U/L (15-37); BILIRUBIN TOTAL 0.3 mg/dL (0.2-1.0); BLOOD UREA NITROGEN,BUN 11 mg/dL (7-18); BUN/CREATININE RATIO 14.5 (No establ ref range); CALCIUM 8.6 mg/dL (8.5-10.1); CARBON DIOXIDE,CO2 29 mmol/L (21-32); CHLORIDE,CL 109 mmol/L (98-107); CREATININE 0.76 mg/dL (0.55-1.02); GLUCOSE RANDOM 103 mg/dL (70-99); PROTEIN TOTAL,TP 6.5 g/dL (6.4-8.2); SODIUM,NA 145 mmol/L (136-145)
[2024-07-27 18:12] LABS: A/G RATIO 0.91; ESTIMATED GFR 77 mL/min (>=60)
[2024-07-27 18:14] LABS: INR 1.2 (0.9-1.2); PROTHROMBIN TIME 12.7 SEC (9.0-12.0)
[2024-07-27] MEDS: LORazepam 2 MG/ML SDV IVPUSH ONE (19:08)
[2024-07-27] MEDS ORDERED: Atropine 1% Ophth Soln 5 ML Bottle SL PRN (20:17)
[2024-07-27] MEDS: Scopalamine 1mg/3day Transdermal Patch TOP ONE (21:00)
[2024-07-27] MEDS: LORazepam 2 MG/ML SDV IVPUSH PRN (21:00)
[2024-07-28] MEDS: Morphine 2 MG/ML SYRINGE IVPUSH PRN (00:10)
== END 2024-07-28 11:00 | disposition other institution (70) | DRG 65 ==
LOC: DL.ED 17:35 → DL.MS 19:12
PROVIDERS: ADMIT Internal Medicine; ATTEND Internal Medicine
DX: I63.9 Cerebral infarction, unspecified (principal); F02.84 Dementia in other diseases classified elsewhere, unspecified severity, with anxiety; G81.94 Hemiplegia, unspecified affecting left nondominant side; I10 Essential (primary) hypertension; E78.5 Hyperlipidemia, unspecified; G89.4 Chronic pain syndrome; I48.91 Unspecified atrial fibrillation; G25.81 Restless legs syndrome; G30.9 Alzheimer's disease, unspecified; H54.7 Unspecified visual loss; M19.90 Unspecified osteoarthritis, unspecified site; F15.90 Other stimulant use, unspecified, uncomplicated; I65.23 Occlusion and stenosis of bilateral carotid arteries; R29.810 Facial weakness; Z88.2 Allergy status to sulfonamides; Z86.73 Personal history of transient ischemic attack (TIA), and cerebral infarction without residual deficits; Z88.0 Allergy status to penicillin; Z88.6 Allergy status to analgesic agent; Z79.01 Long term (current) use of anticoagulants; Z88.8 Allergy status to other drugs, medicaments and biological substances; Z91.040 Latex allergy status; Z79.82 Long term (current) use of aspirin; Z79.02 Long term (current) use of antithrombotics/antiplatelets; Z79.899 Other long term (current) drug therapy; Z91.013 Allergy to seafood; Z88.1 Allergy status to other antibiotic agents
CPT/HCPCS: 36415; 70450; 70496; 70498; 80053; 82947; 83735; 85025; 85610; 93005; 93010; 96374; 99223; 99238; 99285; 99285-25; A9270-GY; J2060; J2270; Q9967